=== PATIENT | female | born 1975 | race Caucasian/White ===

== ENCOUNTER 2017-09-03 15:02 | Observation (INO) ==
[2017-09-03] MEDS ORDERED: Naloxone 0.4 MG/ML INJ IVP PRN (19:52)
--- NOTE | 2017-09-03 20:41 | Internal Med History&Physical ---
<Annette Burnette M - Last Filed: 09/03/17 20:34> Date of Encounter: 09/03/17 Time of Encounter: 20:34 Assessment and Plan (1) Transient cerebral ischemia Current visit: Yes Status: Acute Patient reported headache, dizziness, right arm and right face numbness and weakness with trouble finding words. This lasted for several hours this morning , and her headache continues. CT Head at [facility] showed no acute intracranial abnormality. Troponin negative at 0.01. Blood sugar was normal. EKG showed normal sinus rhythm with no ST elevations or depressions. She was given aspirin at [facility]. Differential includes TIA, Migraine with aura. Continuous monitoring analyst lipid panel with morning labs serial troponins carotid doppler echocardiogram MRI Head/brain neurology consulted. Qualifiers: Transient cerebral ischemia type: unspecified Qualified Code(s): G45.9 - Transient cerebral ischemic attack, unspecified (2) Chest tightness Current visit: Yes Status: Acute Patient reporting intemittent chest tightness. EKG showed NSR no ST elevations or depressions. initial troponin of 0.01. check lipid panel with morning labs. Continuous monitoring analyst serial troponins echocardiogram (3) DVT prophylaxis Current visit: Yes Status: Acute anti-embolic stockings lovenox SQ daily Internal Medicine - H&P: HPI Chief complaint: right sided weakness Admitted From: Hospital to Hospital Transfer Plans for Post Hospital Care: Home History of present illness: Ms. Mckeon is a 42 year old female with no significant medical history except migraines presented to [facility] ED today complaining of right-sided numbness and weakness right facial numbness and difficulty finding words. Patient reports that she has been feeling well all week, she cannot articulate exactly what this means, just stating that she just did not feel like herself. Had intermittent chest tightness, which she reports has happened on and off for a long time, and she attributes it to anxiety. Today she reports she woke up with a headache and then developed dizziness at approximately 9 AM and this was followed by experiencing right arm numbness and weakness as well as right facial numbness and difficulty speaking. She also had chest tightness and palpitations. The symptoms lasted until she decided to go to the [facility] EGD to approximately 11 AM and most of her symptoms resolved by the time she was seen in the ER. She reports she was still experiencing right hand numbness on and off in the ER but that has since resolved. She reports she is still experiencing headache 4-10 on the pain scale. Evaluation Mitch included a head CT which showed no acute intracranial abnormality. EKG showed normal sinus rhythm with no ST elevations or depressions. Troponin was normal at 0.01. On exam, patient alert and oriented, in no acute distress. She is neurologically intact with no focal deficits. Heart has regular rate and rhythm , lungs are clear bilaterally to auscultation. No peripheral edema. Past Med Surg Social Fam HX - Past Medical History Medical history: no medical history, migraine Psychiatric history: no psych history - Past Surgical History Surgical History: appendectomy - Social History Smoking Status: Never smoker Smokeless Tobacco Status: No Alcohol use: occasionally Drug use: none - Family History Mother Living Status: Still Living Hx Family Cardiac Disorders: Yes (HTN) Father History Unknown: Yes Internal Medicine - H&P: Meds 3 Allergy/AdvReac Type Severity Reaction Status Date / Time No Known Allergies Allergy Verified 09/03/17 11:24 All Systems PM: A 10-system review of systems was performed and is negative for pertinent findings except as documented above in the HPI. - Constitutional Constitutional: no chills, no fever(s), no night sweats - EENT Eyes: no change in vision, no discharge, no pain, no photophobia Ears: no ear discharge, no ear pain, no tinnitus Nose, mouth and throat: no dysphagia, no nasal discharge, no neck pain, no sore throat - Cardiovascular Cardiovascular ROS IM: no chest pain, no diaphoresis, no dyspnea, no lightheadedness, no palpitations, no syncope - Respiratory Respiratory: no cough, no dyspnea, no wheezing, no excessive phlegm production - Gastrointestinal Gastrointestinal: no abdominal pain, no diarrhea, no hematemesis, no hematochezia, no melena, no nausea, no vomiting - Genitourinary Genitourinary: no change in urinary stream, no dysuria, no flank pain, no hematuria - Musculoskeletal Musculoskeletal ROS IM: no numbness, no tingling - Integumentary Integumentary IM: no rash, no unusual bruising - Neurological Neurological ROS: abnormal speech (transient), focal weakness (transient right sided), headache(s), numbness (transient right sided), no confusion, no convulsions, no tingling, no tremor(s) - Hematologic/Lymphatic Hematologic/Lymphatic: no easy bruising - Constitutional Vitals: Temp Pulse Resp BP Pulse Ox 98.4 F 71 20 111/75 100 09/03/17 19:02 09/03/17 19:02 09/03/17 19:02 09/03/17 19:02 09/03/17 19:02 General appearance: Present: A&O X 3, pleasant, no acute distress - Head Head exam: Present: atraumatic, normocephalic - Eye Eye exam: Present: PERRL, conjuntiva pink, sclera anicteric Pupils: Present: PERRL - Neck Neck exam general surgery: Present: supple, trachea midline. Absent: lymphadenopathy - Respiratory Respiratory exam: Present: CTAB. Absent: accessory muscle use, rales, rhonchi, wheezes - Cardiovascular Cardiovascular exam: Present: RRR, +S1, +S2. Absent: diastolic murmur, gallop, rubs, systolic murmur - GI/Abdominal GI/Abdominal exam: Present: normal bowel sounds, soft, no peritoneal signs. Absent: distended, tenderness - Extremities Exam Extremities exam: Present: warm, radial pulses palpable and symmetrical. Absent : calf tenderness, cyanotic, pedal edema - Neurological Exam Neurological exam: Present: CN II-XII intact, oriented X3, no focal deficits. Absent: pronater drift, facial droop, speech deficit - Expanded Neurological Exam Cranial Nerves: EOM's intact PM: Normal, nystagmus PM: Normal, tongue deviation PM: Normal Neuro motor strength exam: LUE: 5, RUE: 5, LLE: 5, RLE: 5 - Skin Skin exam: Present: dry, intact Internal Med - H&P Results - Labs Labs: Labs from [facility]: WBC 7.1 Hgb 11.8 Hct 35.5 Plt 253 Na 136 K 3.6 Cl 105 CO2 23 BUN 8 Cr 0.77 Glu 103 trop 0.01 <Bartolo Cheng - Last Filed: 09/04/17 02:49> Date of Encounter: 09/04/17 Time of Encounter: 00:20 - Constitutional Vitals: Temp Pulse Resp BP Pulse Ox 98.3 F 78 20 109/69 98 09/03/17 22:40 09/03/17 22:40 09/03/17 22:40 09/03/17 22:40 09/03/17 22:40 General appearance: Present: cooperative, A&O X 3, pleasant, no acute distress - Head Head exam: Present: atraumatic, normal inspection - Eye Eye exam: Present: EOMI, PERRL. Absent: scleral icterus Pupils: Present: normal accommodation - ENT ENT exam: Present: mucous membranes dry, normal exam - Neck Neck exam general surgery: Present: full ROM, supple. Absent: tenderness - Expanded Neck Exam Neck exam: Absent: carotid bruit - Respiratory Respiratory exam: Present: CTAB - Cardiovascular Cardiovascular exam: Present: RRR, +S1, +S2, systolic murmur (grade 1 -2 ). Absent: diastolic murmur - GI/Abdominal GI/Abdominal exam: Present: normal bowel sounds, soft. Absent: distended, tenderness - Extremities Exam Extremities exam: Present: full ROM. Absent: calf tenderness - Back Exam Back exam: Absent: CVA tenderness (L), CVA tenderness (R) - Neurological Exam Neurological exam: Present: alert, CN II-XII intact, oriented X3, no focal deficits - Psychiatric Psychiatric exam: Present: normal affect, normal mood - Skin Skin exam: Present: dry, warm. Absent: rash Internal Med - H&P Results - Labs CBC & Chem 7: 09/04/17 01:42 09/04/17 01:42 Labs: Short CBC 09/04/17 Range/Units 01:42 WBC 8.7 (4.3-11.1) K/mcL Hgb 11.6 (11.5-15.4) g/dL Hct 36.5 (35.3-44.9) % Plt Count 247 (140-400) K/mcL Neutrophils # 4.6 (1.6-8.9) K/mcL BMP 09/04/17 01:42 Sodium 137 Potassium 3.9 Chloride 107 Carbon Dioxide 24 BUN 7 Creatinine 0.73 Glucose 94 Calcium 8.7 Cardiac Enzymes 09/03/17 09/04/17 Range/Units 20:30 01:42 Troponin I 0.01 0.00 (0-0.03) ng/mL - EKG Data -: EKG Interpreted by Myself EKG shows normal: sinus rhythm - EKG Data Prior EKG available for review: no EKG comments: 09/04/17 02:42 NSR - Attending Attestation I discussed the patient MIAMI, PMH, ROS, lab data, and exam findings with Annette Burnette CNP. I then saw and examined patient independently as well. Pt symptoms have resolved but she still has a mild headache remaining. Of note, Family History is pertinent for her daughter who developed a spinal infarct at 12 yo with resultant paralysis. Her daughter had extensive hypercoagulable work -up performed (negative) and there is no family history to suggest clotting disorder. We will consult neurology given her presentation and history of migraines. Additionally, we'll proceed with MRI brain, ECHO, and Carotid Dopplers. I did notice a murmur on auscultation of her heart. She has no known history of a murmur. I'm unsure of significance, but we'll follow up with ECHO. Other than my comments above and noted exam findings, I agree with Annette's assessment and plan.
[2017-09-03] MEDS: Acetaminophen 325 MG TABLET PO PRN (21:39)
[2017-09-04 02:09] LABS: Basophils % 0.3 %; Eosinophils # 0.2 K/mcL (0.0-0.6); Eosinophils % 2.2 %; Hematocrit 36.5 % (35.3-44.9); Hemoglobin 11.6 g/dL (11.5-15.4); Immature Granulocytes % 0.2 % (0-4); Lymphocytes # 3.2 K/mcL (0.6-4.6); Lymphocytes % 37.1 %; Mean Corpuscular HGB Conc 31.8 g/dL (31.6-35.5); Mean Corpuscular Hemoglobin 25.4 pg (28.0-33.3); Mean Platelet Volume 9.9 fL (9.4-12.4); Monocytes # 0.7 K/mcL (0.0-1.3); Monocytes % 7.8 %; Neutrophils # 4.6 K/mcL (1.6-8.9); Platelet Count 247 K/mcL (140-400); Red Blood Count 4.56 M/mcL (3.82-4.97); Red Cell Distribution Width 15.1 % (11.5-14.5); Segmented Neutrophils % 52.4 %
[2017-09-04 02:17] LABS: BUN/Creatinine Ratio 10 (6-26); Blood Urea Nitrogen 7 mg/dL (7-20); Calcium 8.7 mg/dL (8.6-10.8); Carbon Dioxide 24 mEq/L (19-29); Chloride 107 mEq/L (98-109); Cholesterol 189 mg/dL (< 200); Glucose 94 mg/dL (70-99); HDL Cholesterol 38 mg/dL (40-59); LDL Cholesterol,Calculated 129 mg/dL (0-99); Osmolality,Calculated 282 (280-300); Potassium 3.9 mEq/L (3.5-4.5); Sodium 137 mEq/L (136-145); Triglycerides 111 mg/dL (< 150); eGFR For African Americans > 60 (> 60); eGFR For Non-African Americans > 60 (> 60)
[2017-09-04] MEDS: Acetaminophen 325 MG TABLET PO PRN (03:03)
[2017-09-04] MEDS ORDERED: *HR* Enoxaparin 40 MG/0.4 ML SYRINGE SQ SCH (07:00)
[2017-09-04] MEDS ORDERED: Aspirin 81 MG TAB.CHEW PO SCH (09:00)
--- NOTE | 2017-09-04 09:44 | Carotid Imaging Report ---
Carotid Duplex Patient Name:Marcy Mckeon Order Number:[id number] Procedure Date:09/04/2017 Date:1975Age:42 yrs Gender:Female Rt.BP:98 / 66 mmHgHeart Rate: Location:[facility] Room #: 44 Prevention Specialist:Erika Ricardo, RVT, RDCS Referring MD:Annette Burnette CNP auto parker:Yumiko Mathis CNP Reading MD:Sidney Taylor MD Primary Indications:TIA Impressions: The bilateral carotid arteries are normal throughout. Findings Carotid Duplex: Sparks scale imaging combined with Doppler flow analysis suggests normal findings bilaterally. Right: The right proximal common carotid artery has a PSV of 108 cm/s and a EDV of 34 cm/s. The right mid common carotid artery has a PSV of 105 cm/s and a EDV of 34 cm/s. The right distal common carotid artery has a PSV of 108 cm/s and a EDV of 30 cm/s. The right bifurcation has a PSV of 109 cm/s and a EDV of 32 cm/s. The right proximal internal carotid artery has a PSV of 104 cm/s and a EDV of 41 cm/s. The right mid internal carotid artery has a PSV of 102 cm/s and a EDV of 43 cm/s. The right distal internal carotid artery has a PSV of 105 cm/s and a EDV of 49 cm/s. The right eca has a PSV of 113 cm/s and a EDV of 30 cm/s. The right vertebral artery has a PSV of 80 cm/s and a EDV of 31 cm/s. Left: The left proximal common carotid artery has a PSV of 101 cm/s and a EDV of 39 cm/s. The left mid common carotid artery has a PSV of 104 cm/s and a EDV of 36 cm/s. The left distal common carotid artery has a PSV of 107 cm/s and a EDV of 43 cm/s. The left bifurcation has a PSV of 109 cm/s and a EDV of 39 cm/s. The left proximal internal carotid artery has a PSV of 99 cm/s and a EDV of 41 cm/s. The left mid internal carotid artery has a PSV of 109 cm/s and a EDV of 50 cm/s. The left distal internal carotid artery has a PSV of 99 cm/s and a EDV of 40 cm/s. The left eca has a PSV of 110 cm/s and a EDV of 20 cm/s. The left vertebral artery has a PSV of 78 cm/s and a EDV of 35 cm/s. Carotid Results Right PSV EDV Assessment Proximal CCA 108 34 Mid CCA 105 34 Distal CCA 108 30 Bifurcation 109 32 Proximal ICA 104 41 Mid ICA 102 43 Distal ICA 105 49 ECA 113 30 Vertebral Artery 80 31 Left PSV EDV Assessment Proximal CCA 101 39 Mid CCA 104 36 Distal CCA 107 43 Bifurcation 109 39 Proximal ICA 99 41 Mid ICA 109 50 Distal ICA 99 40 ECA 110 20 Vertebral Artery 78 35 Ratio's Right ICA/CCA Ratio: 0.99 Left ICA/CCA Ratio: 1.05 Updated by Sidney Taylor MD on 09/04/2017 9:40:22 AM electronically signed on 09/04/2017 9:40:52 AM with status of Final
[2017-09-04] MEDS ORDERED: Acetaminophen/Butalbital/CaffeineTABLET PO PRN (10:20)
[2017-09-04 11:26] VITALS: BP 109/70
--- NOTE | 2017-09-04 13:01 | Discharge Summary ---
Date of Encounter: 09/04/17 Time of Encounter: 12:59 - Discharge Diagnosis (1) Right sided weakness Priority: Primary Status: Acute (2) Complicated migraine Priority: Secondary Status: Suspected (3) Headache Priority: Secondary Status: Acute Qualifiers: Headache type: unspecified Headache chronicity pattern: acute headache Intractability: intractable Qualified Code(s): R51 - Headache (4) Chest tightness Priority: Secondary Status: Resolved (5) DVT prophylaxis Priority: Secondary Status: Acute - Discharge Medications Prescriptions: Acetaminophen/Butalbital/Caffe [Fioricet] 1 each PO Q6HR PRN #10 tablet PRN Reason: Headache Aspirin Enteric Coated [Aspirin EC] 81 mg PO DAILY #30 tablet. Home Medications: Acetaminophen/Butalbital/Caffe [Fioricet] 1 each PO Q6HR PRN #10 tablet [Rx] Aspirin Enteric Coated [Aspirin EC] 81 mg PO DAILY #30 tablet. 09/04/17 [Rx] Allergies/Adverse Reactions: 3 Allergy/AdvReac Type Severity Reaction Status Date / Time No Known Allergies Allergy Verified 09/03/17 11:24 Procedures/tests Complete & Pending: Procedures Performed prior 72 hours Category Date Time Status MR head/brain wo con [MR] Routine MRI 09/04/17 21:00 Draft EV carotid duplex imaging BI Routine Y 09/04/17 07:00 Completed EV echocardiogram Routine Y 09/04/17 07:00 Completed Date of admission: 09/03/17 17:33 Primary care physician: Yumiko Mathis CNP Consults: 09/03/17 20:31 Consult to Neurology [CONS] Routine Consulting Provider: Neurology [facility] Reason for Consult: 42F with transient right sided numbness, weakness, aphasia and dizziness. Symptoms now resolved Call Completed: No Discharging clinician: Anais Medina Anticipated date of discharge: 09/04/17 - Patient Status Disposition: Home, Self-Care Condition: Good Functional capacity at discharge: independent ambulation Overall status at discharge: patient is progressing back to baseline - Discharge Instructions Follow Up With: Yumiko Mathis CNP [Primary Care Provider] - (Appointment has been requested our offices will call you with an appointment time and date. ) Partha Brown DO [Partnered Physician] - (In 1-2 weeks for episode of possible complicated migraine with right-sided weakness) - Diet and Activity Activity: increase activity as tolerated Diet: low fat, low cholesterol, low salt diet Hospital course: Ms. Mckeon is a 42 year old female patient with no significant past medical history except for headaches associated with her menstrual periods presented to the ER at [facility] with complaints of right-sided weakness and facial numbness and difficulty finding words that began about 2 hours prior to presentation. By the time she came to the ER her symptoms have mostly subsided. She reported that she woke up with a headache but was otherwise feeling fine but then developed some dizziness along with these symptoms. She also reported some chest tightness. She does report some increased anxiety. On my examination today, patient does not have any focal deficits. She is back to baseline. She continues to have a headache although it is somewhat improved compared to yesterday. She denies history of migraines but says that her headaches are usually associated with her menstrual periods. She does not have a history of seizures. She was observed in the hospital to rule out TIA. MRI of the brain was done which did not show any acute infarct. She does have chronic white matter changes which could be related to her chronic headaches. Carotid Dopplers did not show any significant stenosis. 2-D echocardiogram does not show any PFO. She has normal ejection fraction. She no longer has any chest pain. Her troponins have been negative. At this time she is clinically stable for discharge. She does not require treatment for most likely she had an episode of complicated migraine. Would recommend treating underlying migraine. I will refer her to neurology for further management. I will also place her on 81 mg aspirin until she follows up with neurology. - Time Spent with Patient Total time spent providing and/or coordinating discharge services: Less than 30 minutes (25 min) - Constitutional Vitals: Temp Pulse Resp BP Pulse Ox 98.4 F 67 15 109/70 93 09/04/17 11:25 09/04/17 11:25 09/04/17 11:25 09/04/17 11:25 09/04/17 11:25 General appearance: Present: cooperative, A&O X 3, pleasant, no acute distress - Neck Neck exam general surgery: Present: supple, trachea midline. Absent: lymphadenopathy - Extremities Exam Extremities exam: Present: warm, radial pulses palpable and symmetrical. Absent : calf tenderness, cyanotic, pedal edema - Neurological Exam Neurological exam: Present: CN II-XII intact, oriented X3, no focal deficits. Absent: pronater drift, facial droop, speech deficit - Skin Skin exam: Present: dry, intact
--- NOTE | 2017-09-04 14:57 | Neurology - Consult Note ---
Date of Encounter: 09/04/17 Time of Encounter: 09:45 Assessment and Plan (1) Complicated migraine Current Visit: Yes Status: Suspected This patient already had symptoms most concerning of the stroke predominantly with her headaches and also having some chest pain and is getting workup for it symptoms has completely resolved now and no focal deficit noted on her current neurological examination. She already had an MRI of the brain that did not show any acute abnormality particularly no evidence of any acute stroke. She also does not have any risk factors for stroke I strongly suspect that it was a prolonged migraine attack that has caused these vascular symptoms commonly seen in the in the patient's. She probably would benefit from preventative medication for the significant headache that she has been experiencing at the same time for acute symptoms she may take an NSAID along with triptan, on as-needed basis She is also getting a workup for her chest pain which could be related to underlying anxiety so far all workup has been negative. At this time I would not recommend starting her on any other new medication except symptomatic pain medication she could be started on low-dose of tricyclics like amitriptyline 25 mg at bedtime as a preventive medication for these headaches. The patient remained stable and workup is negative she could be discharged from neurology standpoint (2) Chronic migraine Current Visit: Yes Status: Acute History of Present Illness HPI: Ms. Mckeon is a 42 year old female no significant medical history except migraines presented to [place] ED today complaining of right-sided numbness and weakness right facial numbness and difficulty finding words. Patient reports that she has been feeling well all week, she also had intermittent chest tightness, which she reports has happened on and off for a long time, and she attributes it to anxiety. she woke up with a headache and then developed dizziness at approximately 9 AM and this was followed by experiencing right arm numbness and weakness as well as right facial numbness and difficulty speaking. She also had chest tightness and palpitations. most of her symptoms resolved by the time she was seen in the ER. She reports she is still experiencing headache head CT which showed no acute intracranial abnormality. EKG showed normal sinus rhythm with no ST elevations or depressions. Troponin was normal at 0.01 Past Med Surg Social Fam HX - Past Medical History Medical history: no medical history, migraine Psychiatric history: no psych history - Past Surgical History Surgical History: appendectomy - Social History Smoking Status: Never smoker Smokeless Tobacco Status: No Alcohol use: occasionally Drug use: none - Family History Mother Living Status: Still Living Hx Family Cardiac Disorders: Yes (HTN) Father History Unknown: Yes Medications and Allergies Acetaminophen/Butalbital/Caffe [Fioricet] 1 each PO Q6HR PRN #10 tablet [Rx] Aspirin Enteric Coated [Aspirin EC] 81 mg PO DAILY #30 tablet. 09/04/17 [Rx] 3 Allergy/AdvReac Type Severity Reaction Status Date / Time No Known Allergies Allergy Verified 09/03/17 11:24 All Systems: A 10-system review of systems was performed and is negative for pertinent findings except as documented above in the HPI. Physical Examination - Vital Signs Vital Signs: Initial Vital Signs Temp Pulse Resp BP Pulse Ox 97.8 F 78 16 123/81 100 09/03/17 17:54 09/03/17 17:54 09/03/17 17:54 09/03/17 17:54 09/03/17 17:54 - Neurologic Detailed motor examination: full strength in all major muscle groups Motor examination - right side: 5/5: deltoids, biceps, triceps, wrist flexion, wrist extension, plating department helper, hip flexors, tibialis Anterior, quadriceps, toe extension (EHL), plantarflexion Motor examination - left side: 5/5: deltoids, biceps, triceps, wrist flexion, wrist extension, hip flexors, plating department helper, quadriceps, tibialis Anterior, toe extension (EHL), plantarflexion Mental Status Examination: awake, alert, oriented to person, oriented to place, oriented to time, follows commands appropriately, answers questions appropriately, no agnosia, no aphasia, no aproxia Cranial nerve examination: PERRL, EOMI, visual leon intact, corneal reflexes brisk symmetrically, sensory to face intact, mastication intact, no facial asymmetry is present, no dysarthria, hearing is intact symmetrically, soft palate elevates bilaterally upon phonation, gag reflex intact, flexes SCM and trapezius muscles symmetrically with full power, tongue protrudes midline, no atrophy or facial fasiculations present Cerebellar examination: no dysmetria, performs finger to nose and heel to raman symmetrically without ataxia, no gait ataxia, no truncal ataxia, no difficulty with rapid alternating movements Results - Laboratory Findings CBC and BMP: 09/04/17 01:42 09/04/17 01:42 Abnormal lab findings: Abnormal lab results MCV 80.0 fL (83.0-100.0) L 09/04/17 01:42 MCH 25.4 pg (28.0-33.3) L 09/04/17 01:42 RDW 15.1 % (11.5-14.5) H 09/04/17 01:42 LDL Cholesterol, Calc 129 mg/dL (0-99) H 09/04/17 01:42 HDL Cholesterol 38 mg/dL (40-59) L 09/04/17 01:42 Cholesterol/HDL Ratio 5.0 (0-4.9) H 09/04/17 01:42 Consult Discharge Plan - Plan Instructions: Butalbital/Aspirin/Caffeine/Codeine (By mouth), Aspirin (By mouth ) Referrals: Yumiko Mathis, [employer] [Primary Care Provider] - (Appointment has been requested our offices will call you with an appointment time and date. ) Partha Brown, [Partnered Physician] - (In 1-2 weeks for episode of possible complicated migraine with right-sided weakness) Prescriptions: Acetaminophen/Butalbital/Caffe [Fioricet] 1 each PO Q6HR PRN #10 tablet PRN Reason: Headache Aspirin Enteric Coated [Aspirin EC] 81 mg PO DAILY #30 tablet.
== END 2017-09-04 14:45 | disposition home or self-care (01) ==
LOC: 3BNU → SUATTDRO 17:33
PROVIDERS: ADMIT Hospitalist; ATTEND Internal Medicine